=== PATIENT | female | born 1980 | race Caucasian/White ===

== ENCOUNTER 2018-09-05 12:00 | Inpatient (IN) | payer OTHER ==
[~2018-09-05 12:00] MED LIST: CITRIC ACID/SODIUM CITRATE 30 ML UNIT-DOSE CUP PO ONE; ELECTROLYTE-148 SOLN 1,000 ML IV SCH
[2018-09-05] MEDS ORDERED: ELECTROLYTE-148 SOLN 1,000 ML IV SCH ×2 (12:30→14:00)
[2018-09-05 13:00] VITALS: BMI 31.8
[2018-09-05] MEDS ORDERED: OXYTOCIN 20 UNITS in 0.9% NS 20 UNIT/1,000 ML INFUS.BAG IV ONE ×2 (13:53→16:24)
[2018-09-05] MEDS ORDERED: ELECTROLYTE-148 SOLN 500 ML IV ONE (13:56)
--- NOTE | 2018-09-05 13:56 | HP ---
Past Medical History - Admission Chief Complaint: RLTCS History of Present Illness: 38yo @ 39wks by lainey here for RLTCS No VB/LOF. +FM. No ctx. 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: Alzheimer's, CVA, Dementia, Migraine, Multiple Sclerosis, Peripheral Neuropathy, Parkinson's, Seizure, Syncope, TIA, Vertigo, Other Cardiovascular: No: AFIB, Aneurysm, Aortic Insufficiency, Aortic Stenosis, CAD, CHF, Deep Vein Thrombosis, HTN, Hyperlipdemia, NE, Mitral Insufficiency, Mitral Stenosis, Murmur, Pulmonary Hypertension, Other Pulmonary: No: Asthma, Bronchitis, Cancer, COPD, O2 Dependent, Pneumonia, Previously Intubated, Pulmonary Embolus, Pulmonary Fibrosis, Sleep Apnea, Other Gastrointestinal: No: Ascites, Cancer, Constipation, Crohn's Disease, Diverticulitis, Diverticulosis, Esophageal Varices, Gastritis, GERD, GI Bleed, Hemorrhoids, Hiatal Hernia, Inflamatory Bowel Disease, Irritable Bowel Disease, Pancreatitis, Peptic Ulcer Disease, Ulcerative Colitis, Other Hepatobiliary: No: Cirrhosis, Cholelithiasis, Cholecystitis, Choledocholithiasis , Hepatitis A, Hepatitis B, Hepatitis C, Other Renal/: No: Renal Failure, Renal Inusuff, BPH, Cancer, Hematuria, Hemodialysis , Neurogenic Bladder, Renal Calculi, UTI, Other Reproductive: No: Ectopic , Endometriosis, Fibroids, PID, Polycystic Ovary Syndrome, Postmenopausal, Other ...: 3 ...Para: 2 ...Term: 2 ...: 0 ...Spon : 0 ...Induced : 0 ...Multiple Gestation: 0 ...LMP: 11/28/17 ... Weeks Gestation by Dates: 40.1 ...EDC by Dates: 09/04/18 ...EDC by Sono: 09/12/18 Heme/Onc: Yes: Anemia Infectious Disease: No: AIDS, C-Diff, Herpes Zoster, HIV, MRSA, STD's, Tuberculosis, VREF, Other Musculoskeletal: No: Bursitis, Chronic low back pain, Hemiparesis, Hemiplegia, Osteoarthritis, Paraplegia, Other ENT: No: Allergic Rhinitis, Sinusitis, Other Endocrine: No: Avalon's Disease, Colin's Disease, Diabetes Insipidus, Diabetes Mellitus, Hyperparathyroidism, Hyperthyroidism, Hypothyroidism, Osteopenia, SIADH, Other - Past Surgical History Past Surgical History: Yes: Hx Myomectomy: No Hx Transabdominal Cerclage: No - Advance Directives Advance Directives: Yes: Living Will - Smoking History Smoking history: Never smoked Have you smoked in the past 12 months: No - Alcohol/Substance Use Hx Alcohol Use: No History of Substance Use: reports: None - Social History Usual Living Arrangement: Yes: With Spouse, Assisted Living History of Recent Travel: No Home Medications - Allergies Allergies/Adverse Reactions: Allergies Allergy/AdvReac Type Severity Reaction Status Date / Time No Known Allergies Allergy Verified 08/28/18 09:59 - Home Medications Home Medications: Ambulatory Orders Glyburide 2.5 mg PO BID 07/19/18 Pnv No.95/Ferrous Fum/Folic AC [ Vitamin Tablet] 1 each PO DAILY Physical Exam - Maternity Vital Signs: Vital Signs Temperature 98.1 F 09/05/18 12:00 Pulse Rate 86 09/05/18 12:00 Respiratory Rate 20 09/05/18 12:00 Blood Pressure 134/74 09/05/18 12:00 O2 Sat by Pulse Oximetry (%) Constitutional: Yes: Well Nourished, No Distress, Calm Eyes: Yes: WNL, Conjunctiva Clear, EOM Intact HENT: Yes: WNL, Atraumatic, Normocephalic Neck: Yes: WNL, Supple, Trachea Midline Cardiovascular: Yes: WNL, Regular Rate and Rhythm Breast(s): Yes: WNL - Abdominal Exam/OB Number of Fetuses: Single Presentation: Vertex Contractions: No Category: I Accelerations: Non-Uniform Decelerations: None - Physical Exam Edema: No Problem List - Problems (1) Gestational diabetes Code(s): O24.419 - GESTATIONAL DIABETES MELLITUS IN , UNSP CONTROL Assessment/Plan 37yo @ 39+wks here for RLTCS Admit to L&D NPO, IVFs Cat I tracing Jimenez, SCDs, Ancef Risk of bleeding, infection, injury to bladder/bowel/adnexa/vessels. All questions answered in [place]. Consents signed. Nadja Loco MD
[2018-09-05] MEDS ORDERED: CITRIC ACID/SODIUM CITRATE 30 ML UNIT-DOSE CUP PO ONE (13:57)
[2018-09-05] MEDS ORDERED: morphine SULFATE/PF 0.5 MG/ML (2cc Syringe - QUVA) ONE (14:05)
[2018-09-05] MEDS ORDERED: PROPOFOL 20 ML ONE (14:05)
[2018-09-05] MEDS ORDERED: ePHEDrine SULFATE 50 MG/1 ML AMPULE ONE (14:05)
[2018-09-05] MEDS ORDERED: SUCCINYLCHOLINE CHLORIDE 200 MG/10 ML SYRINGE ONE (14:05)
[2018-09-05] MEDS ORDERED: oxyCODONE HCL 5 MG TABLET PO PRN (14:49)
[2018-09-05] MEDS ORDERED: METHYLERGONOVINE MALEATE 0.2 MG/1 ML AMP IM PRN (14:49)
--- NOTE | 2018-09-05 14:49 | OP ---
Operative Note - Note: Operative Date: 09/05/18 Pre-Operative Diagnosis: Prior , 39 week , Gestational Diabetes A2 Operation: Repeat Findings: VFI, ALMA position. No nuchal. No meconium. Apgars 9/9. Weight pending. Normal tubes and ovaries Post-Operative Diagnosis: Same as Pre-op Surgeon: Nadja Loco Wire Winder: Gurjit Verma Anesthesia: Spinal Estimated Blood Loss (mls): 500 Drains, Volume Out (mls): 100 Operative Report Dictated: Yes
[2018-09-05] MEDS ORDERED: IBUPROFEN 800 MG/8 ML IJ IVPB PRN (14:50)
[2018-09-05] MEDS ORDERED: OXYTOCIN 20 UNITS in 0.9% NS 20 UNIT/1,000 ML INFUS.BAG IV SCH (15:00)
[2018-09-05] MEDS ORDERED: morphine SULFATE/PF 0.5 MG/ML (2cc Syringe - QUVA) EP ONE (15:03)
[2018-09-05] MEDS: FERROUS SO4 325 MG TABLET (FP) PO SCH (17:30)
[2018-09-05] MEDS: ONDANSETRON 4 MG/2 ML VIAL IVPUSH PRN ×2 (17:35→21:22)
--- NOTE | 2018-09-05 20:29 | OP ---
DATE OF OPERATION: 09/05/2018 PREOPERATIVE DIAGNOSES: Prior section, 39-week , gestational diabetes A2. POSTOPERATIVE DIAGNOSES: Prior section, 39-week , gestational diabetes A2. PROCEDURE: Repeat low-transverse section. ANESTHESIA: Spinal. SURGEON: Nadja Loco MD FIELD TRAINER: DIONICIO Hackett ESTIMATED BLOOD LOSS: 500 mL. IV FLUIDS: Per Anesthesia record. URINE OUTPUT: 100 mL of clear urine at the end of the procedure. FINDINGS: Viable female , ALMA position. No nuchal, no meconium. Apgars 9 and 9. Weight pending. Normal tubes and ovaries bilaterally. COMPLICATIONS: None. CONDITION: Stable to recovery room. NATURE OF PROCEDURE: After the appropriate consents were signed, patient was taken to the operating room. Spinal anesthesia was administered. She was placed in supine position. A Jimenez catheter had been inserted prior to entry into the operating room. The abdomen was then prepped and draped in normal sterile fashion. Timeout was performed, confirming correct patient and procedure. A Pfannenstiel incision was made with the scalpel, carried through to the underlying layers until the fascia was nicked in the midline. The fascia was then extended laterally with the Jackson scissors. The inferior aspect of the fascia was grasped, tented upwards with Karol clamps, and the rectus muscles were dissected off bluntly and with the Jackson scissors. Attention was then paid to the superior aspect, which was taken down in a similar fashion. The rectus muscles were dissected bluntly in the midline and manually. Peritoneum was then entered bluntly and extended bluntly. The bladder blade was then inserted. Bladder flap was then created with the Metzenbaum scissors and gentle traction using a lap, taken down. The bladder blade was readjusted. The uterus was incised in a low transverse fashion. Clear amniotic fluid was noted. The infant's head was delivered without difficulty, as were the remaining shoulder and body. The cord was clamped and cut. The was handed off to the awaiting pediatric staff. The placenta was removed manually. The uterus was cleared of all clot and debris. The hysterotomy was closed in a single imbricating layer with a 1-0 Vicryl, with good hemostasis. The gutters were cleared of all clot and debris. The adnexa were inspected and noted to be normal bilaterally. The hysterotomy was reexamined and noted to be hemostatic. Muscles were reapproximated with a 3-0 chromic. The fascia was closed with a 0 Vicryl. The skin was closed with a 3-0 Vicryl, with good hemostasis and cosmesis. Appropriate bandages were placed. Sponge, lap, needle counts were correct x3. The patient did receive Ancef at the start of the procedure. She was taken from the operating room to the recovery area in stable condition. NADJA LOCO MD [id number]
[2018-09-06 07:37] LABS: BASO % 0.5 % (0-2.0); EOS % 0.3 % (0-4.5); HEMATOCRIT 24.1 % (32.4-45.2); LYMPH % 16.3 % (8-40); MCH 28.6 pg (25.7-33.7); MCHC 33.1 g/dl (32.0-36.0); MEAN CELL VOLUME 86.5 fl (80-96); MEAN PLT VOLUME 10.4 fl (7.5-11.1); MONO % 6.4 % (3.8-10.2); NEUT % 76.5 % (42.8-82.8); PLATELET COUNT 180 K/MM3 (134-434); RBC 2.79 M/mm3 (3.60-5.2); RDW 15.2 % (11.6-15.6); WHITE BLOOD COUNT 8.9 K/mm3 (4.0-10.0)
--- NOTE | 2018-09-06 07:37 | PN ---
HC Provider Note Provider Note: Anesthesia Post op Note Pt seen s/p spinal for c/s Pt denies, h/a, back pain, puritis Good pain control Pt reports n/v resolved Jimenez in situ VSS no apparent anesthesia complications Glynn Sargent.
[2018-09-06] MEDS: FERROUS SO4 325 MG TABLET (FP) PO SCH ×2 (08:16→17:02)
--- NOTE | 2018-09-06 08:42 | PN ---
Post Progress Note - Subjective Subjective: Pain controlled. Lochia less than menses. No fevers/chills Post Day: 1 Type of Delivery: Repeat C/S Vital Signs: Vital Signs Temperature 98.4 F 09/06/18 07:30 Pulse Rate 54 L 09/06/18 07:30 Respiratory Rate 18 09/06/18 08:00 Blood Pressure 130/71 09/06/18 07:30 O2 Sat by Pulse Oximetry (%) 98 09/05/18 15:35 Uterus: Yes: Fundus below umbilicus Incision: Yes: Dressing dry and intact, Sutures intact Abdomen/GI: Yes: Abdomen soft, Tolerating PO Lochia: Yes: Rubra Lochia, amount: Small Extremities: Yes: Calves non-tender Perineum: Yes: Intact Activity: Ambulating - Labs Labs: CBC WBC 8.9 K/mm3 (4.0-10.0) 09/06/18 07:04 RBC 2.79 M/mm3 (3.60-5.2) L 09/06/18 07:04 Hgb 8.0 GM/dL (10.7-15.3) L 09/06/18 07:04 Hct 24.1 % (32.4-45.2) L D 09/06/18 07:04 MCV 86.5 fl (80-96) 09/06/18 07:04 MCH 28.6 pg (25.7-33.7) 09/06/18 07:04 MCHC 33.1 g/dl (32.0-36.0) 09/06/18 07:04 RDW 15.2 % (11.6-15.6) 09/06/18 07:04 Plt Count 180 K/MM3 (134-434) 09/06/18 07:04 MPV 10.4 fl (7.5-11.1) 09/06/18 07:04 Absolute Neuts (auto) 6.8 K/mm3 (1.5-8.0) 09/06/18 07:04 Neutrophils % 76.5 % (42.8-82.8) D 09/06/18 07:04 Lymphocytes % 16.3 % (8-40) D 09/06/18 07:04 Monocytes % 6.4 % (3.8-10.2) 09/06/18 07:04 Eosinophils % 0.3 % (0-4.5) D 09/06/18 07:04 Basophils % 0.5 % (0-2.0) 09/06/18 07:04 Nucleated RBC % 0 % (0-0) 09/06/18 07:04 Problem List - Problems (1) Gestational diabetes Code(s): O24.419 - GESTATIONAL DIABETES MELLITUS IN , UNSP CONTROL Assessment/Plan 37yo s/p RLTCS POD#1 Routine PP care PO pain control Labs reviewed, anemia; elevated LFTs with admission labs OOB, ambulate Anticipate d/c to home by POD#4 Nadja Loco MD
[2018-09-06] MEDS: PRENATAL VITAMINS W/ FOLIC ACID TABLET (FP) PO SCH (10:36)
[2018-09-06] MEDS: SIMETHICONE 80 MG TAB.CHEW (FP) PO PRN ×2 (14:28→20:05)
[2018-09-06] MEDS: IBUPROFEN 600 MG TABLET (FP) PO PRN ×2 (14:28→20:05)
[2018-09-06] MEDS ORDERED: BISACODYL 10 MG SUPP.RECT RC PRN (14:49)
[2018-09-06] MEDS: ACETAMINOPHEN 325 MG TABLET (FP) PO PRN (20:05)
--- NOTE | 2018-09-07 07:07 | PN ---
Progress Note (short form) - Note Progress Note: pod 2 s/p c/s , anemia , no c/o, no dizziness , no excess vaginal bleeding Last Vital Signs Temp Pulse Resp BP Pulse Ox 99.4 F 60 18 129/63 98 09/06/18 20:55 09/06/18 20:55 09/06/18 20:55 09/06/18 20:55 09/05/18 15:35 abdomen soft, no distension, no cva incision dry, clean no calf tenderness plan ambulate, cbc in am iron, vit
[2018-09-07] MEDS: FERROUS SO4 325 MG TABLET (FP) PO SCH ×2 (08:10→16:55)
[2018-09-07] MEDS: PRENATAL VITAMINS W/ FOLIC ACID TABLET (FP) PO SCH (09:07)
[2018-09-07] MEDS: IBUPROFEN 600 MG TABLET (FP) PO PRN (15:07)
[2018-09-07] MEDS: ACETAMINOPHEN 325 MG TABLET (FP) PO PRN (15:08)
[2018-09-07] MEDS: SIMETHICONE 80 MG TAB.CHEW (FP) PO PRN (15:09)
[2018-09-08] MEDS: FERROUS SO4 325 MG TABLET (FP) PO SCH (07:32)
[2018-09-08 07:59] LABS: BASO % 0.7 % (0-2.0); EOS % 3.4 % (0-4.5); HEMOGLOBIN 7.7 GM/dL (10.7-15.3); LYMPH % 18.1 % (8-40); MCH 29.3 pg (25.7-33.7); MCHC 33.6 g/dl (32.0-36.0); MEAN CELL VOLUME 87.2 fl (80-96); MEAN PLT VOLUME 9.7 fl (7.5-11.1); MONO % 6.5 % (3.8-10.2); NEUT % 71.3 % (42.8-82.8); RBC 2.63 M/mm3 (3.60-5.2); RDW 15.4 % (11.6-15.6); WHITE BLOOD COUNT 9.6 K/mm3 (4.0-10.0)
[2018-09-08 08:39] LABS: PLATELET COUNT 202 K/MM3 (134-434)
[2018-09-08 08:52] VITALS: BP 134/79; PULSE 54; TEMP 98.3
--- NOTE | 2018-09-08 09:52 | DS ---
Physical Examination Vital Signs: Vital Signs Temperature 98.3 F 09/08/18 08:45 Pulse Rate 54 L 09/08/18 08:45 Respiratory Rate 18 09/08/18 08:45 Blood Pressure 134/79 09/08/18 08:45 O2 Sat by Pulse Oximetry (%) 98 09/05/18 15:35 Findings/Remarks: AMbulating, tolerating PO, lochia decreased, passing flatus, voiding, no complaints of anemia symptoms. PP/post-op precautions discussed. Constitutional: Yes: Well Nourished Eyes: Yes: WNL HENT: Yes: WNL Neck: Yes: Supple Cardiovascular: Yes: Regular Rate and Rhythm Respiratory: Yes: Regular Gastrointestinal: Yes: Soft ...Rectal Exam: Yes: Deferred Renal/: Yes: Other (mild lochia) Breast(s): Yes: Other (deferred) Extremities: Yes: WNL (no calf tenderness) Edema: Yes Edema: LLE: 2+, RLE: 2+ Integumentary: Yes: WNL Wound/Incision: Yes: Well Approximated, Sutures Intact, Other (on and no evidence of infection) Neurological: Yes: Alert, Oriented ...Motor Strength: WNL Psychiatric: Yes: Alert, Oriented Labs: CBC, BMP 09/08/18 06:41 Discharge Summary Reason For Visit: Current Active Problems Gestational diabetes (Acute) Procedures: Principal: C/S Hospital Course: Uncomplicated except for asymptomatic mild anemia. Patient seen and evaluated on day of discharge and cleared. Precautions discussed and follow up within a 1 week encouraged. Condition: Stable - Instructions Diet, Activity, Other Instructions: Regular Diet Follow up in 4-6 weeks for visit Referrals: Nadja Loco MD [Staff Physician] - Disposition: HOME - Home Medications Comprehensive Discharge Medication List: Ambulatory Orders Glyburide 2.5 mg PO BID 07/19/18 Pnv No.95/Ferrous Fum/Folic AC [ Vitamin Tablet] 1 each PO DAILY Ferrous Sulfate [Feosol] 325 mg PO DAILY #30 tablet 09/06/18 Ibuprofen 600 mg PO Q6H PRN #30 tablet 09/06/18 Oxycodone HCl/Acetaminophen [Percocet 5-325 mg Tablet -] 1 - 2 tab PO Q6H PRN # 15 tab MDD 3 09/06/18
[2018-09-08] MEDS: PRENATAL VITAMINS W/ FOLIC ACID TABLET (FP) PO SCH (10:05)
--- NOTE | 2018-09-11 20:19 | PATH ---
Surgical Pathology Report Patient Name: DAMARIS LANDERS Med. Rec. #: [id number] /Age/Gender: 1980 (Age: 37) / F Account: [id number] Location: [facility] OBS/COMMUNICATION SPECIALIST Taken: 09/05/2018 Received: 09/06/2018 Reported: 09/11/2018 Physicians: Nadja Loco Specimen(s) Received PLACENTA Clinical History 39 weeks gestation, , advanced maternal age, GDM Final Diagnosis PLACENTA, SECTION: 555 G THIRD TRIMESTER PLACENTA WITH TRIVASCULAR UMBILICAL CORD AND UNREMARKABLE PLACENTAL MEMBRANES. Electronically Signed Damaris Dahl M.D. Gross Description The specimen is received fresh labeled placenta and is a 555 gram, 14.0 x 12.0 x 5.0 cm. placenta with attached membranes and umbilical cord. The attached membranes are guajardo, translucent with focal opacities and display circum-marginate insertion. The umbilical cord measures 34 cm. in length and averages 1.5 cm. in diameter. The cord inserts eccentrically, 2 cm. to the nearest margin. No true knots or strictures are identified. Cut surface of the umbilical cord reveals 3 vessels. The surface is liao-blue with minimal fibrin deposition and appropriate caliber vessels. The maternal surface is red-brown with focal defects. Sectioning reveals red-brown, spongy parenchyma. No lesions are identified. Diesel Powerplant Supervisor sections are submitted in 5 cassettes as follows: 1-membrane roll and umbilical cord; 2-3-one full face bisected section of placenta; 7-9-yqerlmsnlt full face bisected section of placenta. /09/10/2018 saudi/09/10/2018
== END 2018-09-08 10:45 | disposition home or self-care (01) | DRG 540 ==
LOC: JLDR 12:00 → J3W 16:45
PROVIDERS: ADMIT Obstetrics & Gynecology; ATTEND Obstetrics & Gynecology
PROC: 10D00Z1 Extraction of Products of Conception, Low, Open Approach (ICD-10-PCS; principal; 2018-09-05)
DX: O34.211 Maternal care for low transverse scar from previous cesarean delivery (principal); N85.8 Other specified noninflammatory disorders of uterus; O24.420 Gestational diabetes mellitus in childbirth, diet controlled; Z3A.39 39 weeks gestation of pregnancy; O99.02 Anemia complicating childbirth; Z37.0 Single live birth
CPT/HCPCS: 36415; 85025; 88307-TC